=== PATIENT | male | born 1980 | race African-American/Black ===

== ENCOUNTER 2016-08-16 23:51 | Emergency (ER) | payer SELFPAY ==
[~2016-08-16] VITALS: Ht 172.7 cm; Wt 77.0 kg
[2016-08-17] MEDS ORDERED: LORAZEPAM 2MG/ML CPJ IM ONE (00:15)
[2016-08-17] MEDS ORDERED: DIPHENHYDRAMINE 50MG/ML VIAL IM PRN (00:15)
[2016-08-17] MEDS ORDERED: ZIPRASIDONE MESYLATE 20MG/VIAL IM ONE (00:15)
[2016-08-17 00:41] LABS: BASOPHILS % 0.5 % (0.0-2.0); EOSINOPHILS % 0.2 % (0.0-5.0); HEMATOCRIT. 46.3 % (42.0-52.0); HEMOGLOBIN. 15.3 g/dL (14.0-18.0); LYMPHOCYTES % 21.9 % (20.0-50.0); MEAN CORPUSCULAR HEMOGLOBIN 30.7 pg (28.0-32.0); MEAN CORPUSCULAR HGB CONC 33.2 g/dL (31.0-37.0); MEAN CORPUSCULAR VOLUME 92.6 fL (80.0-94.0); MEAN PLATELET VOLUME 7.2 fl (7.4-10.4); MONOCYTES % 6.7 % (2.0-8.0); NEUTROPHILS % 70.7 % (40.0-76.0); PLATELET 278 x1000/uL (130-400); RED CELL DISTRIBUTION WIDTH 13.5 % (11.6-14.6); WHITE BLOOD COUNT 6.4 x1000/uL (4.5-11.0)
[2016-08-17] MEDS ORDERED: ZIPRASIDONE MESYLATE 20MG/VIAL IM NR (00:45)
[2016-08-17 01:33] LABS: *AMPHETAMINES SCREEN URINE NEGATIVE (NEGATIVE); *BARBITURATES SCREEN URINE NEGATIVE (NEGATIVE); *BENZODIAZEPINES SCREEN URINE NEGATIVE (NEGATIVE); *COCAINE SCREEN URINE NEGATIVE (NEGATIVE); CANNABINOID URINE SCREEN NEGATIVE (NEGATIVE); ECSTASY MDMA SCREEN URINE NEGATIVE (NEGATIVE); METHADONE URINE SCREEN NEGATIVE (NEGATIVE); OPIATES URINE SCREEN NEGATIVE (NEGATIVE); PHENCYCLIDINE URINE SCREEN PRESUMTIVE POSITIVE (NEGATIVE)
[2016-08-17 07:07] VITALS: BP 122/84
== END 2016-08-17 07:14 | disposition home or self-care (01) ==
LOC: ER 23:57
DX: T40.991A Poisoning by other psychodysleptics [hallucinogens], accidental (unintentional), initial encounter (principal); F16.921 Hallucinogen use, unspecified with intoxication with delirium; Y92.89 Other specified places as the place of occurrence of the external cause
CPT/HCPCS: 36415; 80305; 85025; 96372; 99284; G0482; J1200; J2060; J3486; Z7610

== ENCOUNTER 2017-01-04 11:15 | Emergency (ER) | payer SELFPAY | END 2017-01-04 13:37 | disposition left against medical advice (07) | LOC: ER 11:21 | DX: Z53.21 Procedure and treatment not carried out due to patient leaving prior to being seen by health care provider (principal) ==

== ENCOUNTER 2017-02-06 09:29 | Emergency (ER) | payer OTHER ==
[~2017-02-06] VITALS: Ht 185.4 cm; Wt 84.0 kg
[2017-02-06] MEDS ORDERED: TRAMADOL 50MG TABLET PO ONE (12:45)
[2017-02-06] MEDS ORDERED: KETOROLAC 60MG/2ML VIAL IM ONE (12:45)
[2017-02-06 14:05] VITALS: BP 122/79
== END 2017-02-06 14:12 | disposition home or self-care (01) ==
LOC: ER 10:45
DX: M54.12 Radiculopathy, cervical region (principal); F12.10 Cannabis abuse, uncomplicated; F17.290 Nicotine dependence, other tobacco product, uncomplicated
CPT/HCPCS: 72040; 93005; 96372; 99284; J1885; Z7610

== ENCOUNTER 2017-11-29 13:06 | Emergency (ER) | payer OTHER ==
[~2017-11-29] VITALS: Ht 182.9 cm; Wt 93.0 kg
[2017-11-29 14:25] VITALS: BP 141/86
== END 2017-11-29 17:44 | disposition left against medical advice (07) ==
LOC: ER 15:29
DX: R05 Cough (principal); R50.9 Fever, unspecified
CPT/HCPCS: 99281

== ENCOUNTER 2022-01-30 03:05 | Emergency (ER) | payer OTHER ==
[~2022-01-30] VITALS: Ht 182.9 cm; Wt 116.0 kg
[2022-01-30 03:12] VITALS: BP 157/101
== END 2022-01-30 04:16 | disposition left against medical advice (07) ==
LOC: ER 03:05
DX: Z53.21 Procedure and treatment not carried out due to patient leaving prior to being seen by health care provider (principal)